=== PATIENT | male | born 1965 | race Caucasian/White ===

== ENCOUNTER 2019-11-02 10:04 | Outpatient (CLI) | payer BC, SELFPAY ==
[2019-11-02 10:20] LABS: Basophils Absolute Auto 0.03 K/mm3 (0.00-0.10); Basophils Percent Auto 0.3 % (0.0-1.0); Eosinophils Absolute Auto 0.11 K/mm3 (0.02-0.50); Eosinophils Percent Auto 1.1 % (1.0-6.0); Hematocrit 45.2 % (40.0-54.0); Hemoglobin 15.3 g/dL (14.0-18.0); Immature Granulocyte Absolute 0.05 K/mm3 (0.00-0.00); Immature Granulocyte Percent A 0.5 % (0.0-0.0); Lymphocytes Absolute Auto 1.02 K/mm3 (1.10-4.50); Lymphocytes Percent Auto 10.3 % (18.0-42.0); Mean Corpuscular HGB Conc 33.8 g/dL (32.0-36.0); Mean Corpuscular Volume 85.8 fL (78.0-102.0); Mean Platelet Volume 9.2 fl (8.7-11.0); Monocytes Absolute Auto 1.02 K/mm3 (0.10-0.90); Monocytes Percent Auto 10.3 % (2.0-11.0); Neutrophils Absolute Auto 7.7 K/mm3 (1.7-7.2); Neutrophils Percent Auto 77.5 % (50.0-70.0); Platelet Count Result 160 K/mm3 (150-420); Red Blood Count 5.27 M/mm3 (4.70-6.10); Red Cell Distribution Width 12.6 % (11.6-14.4); White Blood Count 9.9 K/mm3 (4.8-10.8)
[2019-11-02 10:38] LABS: Influenza Control Valid (Valid)
== END 2019-11-02 10:05 | disposition home or self-care (01) ==
PROVIDERS: PCP Internal Medicine; Visit Provider Internal Medicine
DX: R50.9 Fever, unspecified (principal); R05 Cough
CPT/HCPCS: 36415; 85025; 87804

== ENCOUNTER 2020-02-13 14:14 | Outpatient (CLI) | payer BC, SELFPAY ==
--- NOTE | ~2020-02-13 | XR_ITS ---
EXAMINATION: XR chest 2V 02/13/2020 15:03 INDICATION: Chronic cough PROCEDURE: 2 view chest COMPARISON: No prior studies for comparison. FINDINGS: The lungs are clear. The cardiomediastinal silhouette is within normal limits. There are no pleural effusions. There is no pneumothorax suspected. IMPRESSION: 1: NO ACUTE CARDIOPULMONARY DISEASE. Reviewed, dictated and finalized at location A.
== END 2020-02-13 14:15 | disposition home or self-care (01) ==
LOC: CHSLAB 14:17
PROVIDERS: PCP Internal Medicine; Visit Provider Internal Medicine
DX: R05 Cough (principal)
CPT/HCPCS: 71046

== ENCOUNTER 2020-10-28 14:22 | Outpatient (CLI) | payer BC, SELFPAY ==
--- NOTE | ~2020-10-28 | MR_ITS ---
EXAMINATION: MR knee RT wo con DATE: 10/28/2020 15:28 INDICATION: Medial and posterior right knee pain TECHNIQUE: Magnetic resonance imaging (MRI) of the right knee was performed without intravenous contr ast. Sequences included coronal PD-weighted FSE, coronal PD-weighted FS FSE, sagittal T2-weighted FS E, sagittal PD-weighted FS FSE and axial PD weighted fat saturated FSE. COMPARISON: None. FINDINGS: Medial compartment: The body and posterior horn of the medial meniscus are diminutive suggesting sequela of prior subtota l meniscectomy. There is deep chondral ulceration along the medial margin of the anterior to central weightbearing medial femoral condyle. Extensive deep chondral fissuring along the lateral two thirds of the anterior weightbearing medial femoral condyle where there is underlying regularity articular c ortex and underlying subarticular edema. The contour of the articular surface in this region suggests chronic collapse potentially related to chronic osteochondral lesion or impaction or insufficiency f racture. Partial-thickness cartilage loss along the central to anteromedial quadrant of the medial ti bial plateau with mild chondral surface irregularity. This approaches full-thickness with mild underl laurence subarticular edema along the medial rim. Small to moderate size marginal osteophytes are present . Lateral compartment: There is a tear which appears either longitudinal vertical or more likely complex involving the inner third of the posterior horn of the lateral meniscus. There is deep chondral fissure involving greate r than 50% the cartilage thickness but without degenerative subchondral changes along either side of the posterior horn of the meniscus at the central weightbearing lateral femoral condyle and posterior aspect of the lateral tibial plateau. Region of deep chondral ulceration along the medial aspect of the posterior weightbearing lateral femoral condyle with large central/subchondral osteophyte along t he posterior medial most aspect of the weightbearing lateral femoral condyle. Patellofemoral compartment: Partial-thickness chondral ulceration and deep fissuring without degenerative subchondral changes at the cephalad aspect of the medial trochlea. Deep chondral fissuring with underlying small central sub chondral osteophytes and minimal subarticular edema at the caudal aspect of the trochlear groove and inferomedial most aspect of the lateral trochlea. Deep chondral fissuring with additional small subch ondral osteophytes along the medial half of the medial patellar facet. Shallow chondral fissuring aaron ng the inferior aspect of the lateral facet. Ligaments and tendons: The posterior cruciate ligament is normal. The anterior cruciate ligament is torn with increased sign al at the proximal aspect of the ligament which appears lax and follows a shallower course than Blume nstaat line. The medial collateral ligament and fibular collateral ligament complex are normal. The e xtensor mechanism is normal. The visualized medial and lateral hamstring tendons as well as the iliot ibial band are normal. Fluid: Small right knee joint effusion. No loose osteochondral bodies. Small multilobulated Otoole's cyst. Ad ditional small ganglion cyst along the nonarticular anterior surface of the medial tibial plateau wit h mild cystic change in the underlying bone likely at the capsular insertion. Osseous/other: Bone alignment is normal. No fracture or pathologic marrow replacing process. IMPRESSION: 1. Anterior cruciate ligament tear. 2. Tear, likely complex involving the inner third of the posterior horn of the lateral meniscus. 3. Diminutive body and posterior horn of the medial meniscus likely sequela of chronic subtotal menis cectomy. 4. Moderate medial compartment and mild lateral and patellofemoral compartment osteoarthritis with re gions of high-grade heriberto
== END 2020-10-28 14:23 | disposition home or self-care (01) ==
PROVIDERS: PCP Internal Medicine; Visit Provider Orthopaedic Surgery
DX: S83.281A Other tear of lateral meniscus, current injury, right knee, initial encounter (principal); X58.XXXA Exposure to other specified factors, initial encounter; M17.11 Unilateral primary osteoarthritis, right knee; S83.511A Sprain of anterior cruciate ligament of right knee, initial encounter
CPT/HCPCS: 73721

== ENCOUNTER → 2020-12-03 00:58 | Outpatient (CLI) | payer BC, SELFPAY ==
[2020-12-03 20:47] LABS: SARS-CoV-2 RNA PCR Negative
== END ==
PROVIDERS: PCP Internal Medicine; Visit Provider Orthopaedic Surgery
DX: Z01.812 Encounter for preprocedural laboratory examination (principal); Z20.822 Contact with and (suspected) exposure to COVID-19
CPT/HCPCS: C9803; U0003; U0005

== ENCOUNTER 2020-12-06 00:55 | Day surgery (SDC) | payer BC, SELFPAY ==
[2020-11-27 10:50] VITALS: BMI 29.6
--- NOTE | 2020-12-03 08:25 | PM.IMHP ---
H&P: HPI History of Present Illness Date/Time: 12/03/20 08:25 Pt presents with Right knee/leg pain, that has been present since August 2020. His pain began at the anterior, medial knee and is now located at the posterior knee and radiates up to the lateral hip and, occasionally, down to the foot. He experiences stiffness after sitting for a prolonged period. He has difficulty ambulating down stairs. He has not had any treatments, for his symptoms. He has a history of bilateral knee meniscus repair 6 years ago. MRI completed 10/28/20. Involved knee: right Onset: gradual Location of pain: anterior Character: radiating and dull ache Timing of pain: constant Exacerbated by: sitting, kneeling, squatting, stairs and prolonged activity Relieved by: elevation and rest Associated symptoms: Reports swelling, instability and stiffness History of occupational/recreational activity with repetitive motion: No History of prior knee injury: Yes Prior treatment: surgery (meniscus repair) Chief Complaint: KNEE PAIN Review of Systems Review of Systems: All systems reviewed & are unremarkable except as noted in HPI and below Constitutional: Constitutional: Denies headache(s) and Denies weakness Eyes: Eyes: Denies blurry vision, Denies change in vision and Denies loss of vision ENT: Denies dizziness, Denies dry mouth, Denies headache(s) and Denies nasal congestion Cardiovascular: Cardiovascular: Denies chest pain, Denies syncope, Denies leg edema and Denies dyspnea on exertion Respiratory: Respiratory: Denies cough and Denies dyspnea on exertion Gastrointestinal: Gastrointestinal: Denies abdominal pain, Denies constipation and Denies diarrhea Genitourinary: Genitourinary: Denies urinary frequency Musculoskeletal: Musculoskeletal: Reports as per HPI and Denies numbness Integumentary/Breasts: Skin/Breast: Reports system reviewed and no additional complaints, except as docu Neurologic: Denies dizziness, Denies syncope, Denies headache(s), Denies loss of vision, Denies numbness and Denies weakness Psychiatric: Psychiatric: Reports no additional psychiatric complaints Endocrine: Endocrine: Reports no additional endocrine complaints Hematologic/Lymphatic: Hematologic/Lymphatic: Reports no additional hematologic/lymphatic complaints PMF Past Medical History Medical History Arthritis Right knee pain Surgical History Surgical History History of ear surgery Hx of arthroscopy of left knee Hx of arthroscopy of right knee Family History Family History Other Diabetes mellitus High cholesterol Social History Social History Smoking status: Never smoker Tobacco type: smokeless tobacco Smokeless tobacco user: chewing tobacco Additional smoking assessment comments: 1 CAN/DAY Alcohol intake: current Substance use: never Substance use type: does not use Gender identity (if verbalized by the patient): Male Spiritual care concerns: No Meds Home Medications and Allergies Home Medications Medication Instructions Recorded Confirmed Type chlorhexidine gluconate 4 % 1 applic TOPICAL ONCE #237 ml 11/06/20 11/27/20 Rx topical liquid albuterol 90 mcg INHALATION Q6H PRN 11/27/20 11/27/20 History cetirizine 10 mg PO DAILY 11/27/20 11/27/20 History montelukast 10 mg PO DAILY 11/27/20 11/27/20 History Allergies Allergy/AdvReac Type Severity Reaction Status Date / Time No Known Allergies Allergy Verified 11/27/20 10:49 Exam Narrative: Exam Narrative: Right lower extremity: normal to inspection, full ROM, normal capillary refill, cyanosis and knee Details: normal to inspection, tenderness Location: medial joint line and lateral joint line, swelling, abnormal ROM Details: pain with active ROM during
--- NOTE | 2020-12-05 14:43 | WPDANESEPPF ---
Anes - Initial Pre Proc Eval Procedure: Operation Date: 12/06/20 07:30 Proposed Procedures p Right Knee Arthroscopy, Proceed As Indicated - Easton Garcia MD Date/Time: 12/05/20 14:43 Surgeon: Easton Garcia MD Pre Op Diagnosis: Right Knee lateral Meniscus Tear Patient Data Age: 55 Gender: M Height: 1.83 m Weight: 99 kg Allergies Allergy/AdvReac Type Severity Reaction Status Date / Time No Known Allergies Allergy Verified 12/06/20 06:40 Home Medications Medication Instructions Recorded Confirmed Type chlorhexidine gluconate 4 % 1 applic TOPICAL ONCE #237 ml 11/06/20 11/27/20 Rx topical liquid albuterol 90 mcg INHALATION Q6H PRN 11/27/20 12/06/20 History cetirizine 10 mg PO DAILY 11/27/20 11/27/20 History montelukast 10 mg PO DAILY 11/27/20 12/06/20 History Patient hx anesthesia problems: none Family hx anesthesia problems: none PMFSH Past Medical History Medical History (Updated 12/05/20 @ 14:44 by Dewayne Urban MD) Arthritis Overweight (BMI 25.0-29.9) Right knee pain Tobacco abuse Surgical History Surgical History History of ear surgery Hx of arthroscopy of left knee Hx of arthroscopy of right knee Family History Family History Other Diabetes mellitus High cholesterol Social History Social History Smoking status: Never smoker Tobacco type: smokeless tobacco Smokeless tobacco user: chewing tobacco Additional smoking assessment comments: 1 CAN/DAY Alcohol intake: current Alcohol use details: 2/MONTH Substance use: never Substance use type: does not use Living arrangements: with family Gender identity (if verbalized by the patient): Male Spiritual care concerns: No Anes - Eval Final PreProcedure Day of Procedure 12/05/20 14:43 Patient weight: overweight Heart: regular rate and rhythm Lungs: clear to auscultation and normal air movement Airway: Mallampati scale class II Neurological: alert and oriented Last oral intake: >/= 8 hours ASA classification: II Emergent: no Anesthetic plan: proceed Anesthesia type and monitoring: general LMA Informed Consent: The patient's anesthetic plan and its attendant risks and benefits were discussed with the patient/family/POA. Questions were solicited and answers provided to the satisfaction of the patient/family/POA.
[2020-12-06] MEDS: ACETAMINOPHEN 500 MG TABLET 1000 MG PO (06:27)
[2020-12-06] MEDS: CELECOXIB 200 MG CAPSULE PO (06:33)
[2020-12-06] MEDS: LACTATED RINGERS 1,000 ML 30 ML IV CONT ×2 (06:33→09:10)
[2020-12-06 06:41] VITALS: BP 141/95; PULSE 79; TEMP 36.2; O2SAT 95
--- NOTE | 2020-12-06 07:52 | PM.IMHP ---
H&P: HPI History of Present Illness Date/Time: 12/06/20 07:52 [facility] Past Medical History Medical History (Updated 12/05/20 @ 14:44 by Dewayne Urban MD) Arthritis Overweight (BMI 25.0-29.9) Right knee pain Tobacco abuse Surgical History Surgical History History of ear surgery Hx of arthroscopy of left knee Hx of arthroscopy of right knee Family History Family History Other Diabetes mellitus High cholesterol Social History Social History Smoking status: Never smoker Tobacco type: smokeless tobacco Smokeless tobacco user: chewing tobacco Additional smoking assessment comments: 1 CAN/DAY Alcohol intake: current Alcohol use details: 2/MONTH Substance use: never Substance use type: does not use Living arrangements: with family Gender identity (if verbalized by the patient): Male Spiritual care concerns: No Meds Home Medications and Allergies Home Medications Medication Instructions Recorded Confirmed Type chlorhexidine gluconate 4 % 1 applic TOPICAL ONCE #237 ml 11/06/20 11/27/20 Rx topical liquid albuterol 90 mcg INHALATION Q6H PRN 11/27/20 12/06/20 History cetirizine 10 mg PO DAILY 11/27/20 11/27/20 History montelukast 10 mg PO DAILY 11/27/20 12/06/20 History Allergies Allergy/AdvReac Type Severity Reaction Status Date / Time No Known Allergies Allergy Verified 12/06/20 06:40 Vital Signs Vital Signs - 24 hr 12/06/20 06:41 Temperature 36.2 C L Pulse Rate 79 Blood Pressure 141/95 H Pulse Oximetry 95
--- NOTE | 2020-12-06 07:52 | WPDHPUPDATE1 ---
History and Physical Update Update Date/Time: 12/06/20 07:52 History and Physical has been reviewed, including an updated exam of the patient. There are NO changes in the patient's condition. Risks, benefits, and alternatives have been discussed and questions answered. Patient agrees to proceed with procedure.
[2020-12-06] MEDS: ceFAZolin 2 GM/D5W 50 ML 2 GM/50 ML BAG IVPB (07:59)
[2020-12-06] MEDS: BUPIVACAINE HCL 0.5% PF 30 ML VIAL INFILTRATE (08:26)
[2020-12-06 09:10] VITALS: BP 141/95; PULSE 86; RESP 15; TEMP 36.5; O2SAT 99
--- NOTE | 2020-12-06 09:20 | PM.PROC ---
Procedure Note - Detailed Date of procedure: 12/06/20 Pre-op diagnosis: Right Knee lateral Meniscus Tear Post-op diagnosis: other (lateral meniscus tear, chondromalacia, synovitis) Procedure performed: RIGHT KNEE SCOPE WITH PARTIAL LATERAL MENISCECTOMY AND MAJOR SYNOVECTOMY Description of procedure: PATIENT WAS TAKEN TO THE OR. RIGHT LEG WAS PREPPED AND DRAPED STERILE. TROCARS WERE PLACED IN THE USUAL FASHION. CAMERA WAS INTRODUCED. THERE WAS OSEVERE CHONDROMALACIA TO THE PATELLA FEMORAL JOINT. THERE WAS A LOT OF SYNOVITIS IN ALL COMPARTMENTS. THE MEDIAL COMPARTMENT SHOWED CHONDROMALACIA TO THE MED FEMORAL CONDYLE. A SHAVER WAS USED TO PREFORM A CHONDROPLASTY. THERE WAS A EVIDENCE OF A PREVIOUS MEDIAL MENISCECTOMY BUT NO CURRENT TEAR. THE ACL WAS PARTIALLY TORN BUT INTACT. THE LATERAL MENISCUS WAS TORN AT THE POSTERIOR HORN ROOT. THE TEAR WAS RESECTED. THE LATERAL COMPARTMENT HAD GRADE 2 CHONDROMALACIA AT THE LATERAL PLATEAU. THERE WAS A CHONDRAL DEFECT AT THE LATERAL FEMORAL CONDYLE. CHONDROPLASTY WAS PREFORMED. A SYNOVECTOMY WAS PREFORMED WELL. THE PATELLO FEMORAL JOINT UNDERWENT CHONDROPLASTY. THERE WAS GRADE 3 CHONDROMALACIA IN MOST OF THE TROCHLEA AND PART OF THE PATELLA. SYNOVECTOMY WAS PREFORMED IN THE SUPERIOR MEDIAL COMPARTMENT. THE WOUNDS WERE APPROXIMATED WITH 4.0 NYLON. STERILE DRESSING WAS APPLIED. PATIENT WAS EXTUBATED. Anesthesia: GLMA Surgeon: Easton Garcia MD Estimated blood loss (mL): 20 Complications: No immediate complications Condition: stable Disposition: PACU
[2020-12-06 09:25] VITALS: BP 138/98; PULSE 75; RESP 18; O2SAT 100
[2020-12-06 09:40] VITALS: BP 152/99; PULSE 74; RESP 15; O2SAT 97
[2020-12-06 10:01] VITALS: BP 150/99; PULSE 60
[2020-12-06 10:30] VITALS: BP 136/99; PULSE 63
== END 2020-12-06 10:53 | disposition home or self-care (01) ==
PROVIDERS: PCP Internal Medicine; Visit Provider Orthopaedic Surgery
PROC: (CPT 29870; principal; 2020-12-06 07:30)
DX: M23.221 Derangement of posterior horn of medial meniscus due to old tear or injury, right knee (principal); S83.511A Sprain of anterior cruciate ligament of right knee, initial encounter; M22.41 Chondromalacia patellae, right knee; M65.9 Synovitis and tenosynovitis, unspecified; M23.91 Unspecified internal derangement of right knee; E66.3 Overweight; Z68.28 Body mass index [BMI] 28.0-28.9, adult; F17.220 Nicotine dependence, chewing tobacco, uncomplicated; X58.XXXA Exposure to other specified factors, initial encounter; Y93.9 Activity, unspecified; Y92.9 Unspecified place or not applicable; Y99.9 Unspecified external cause status
CPT/HCPCS: 29881; 29876; A9270; J0690; J1100; J2250; J2405; J2704; J3010; J7120

== ENCOUNTER 2020-12-24 08:07 | Outpatient (RCR) | payer BC, SELFPAY ==
--- NOTE | 2020-12-24 08:39 | PTOPEVAL ---
Thank you for referring Denis Tavares to [facility].? The patient is scheduled to be seen for therapy? __2__x/week for 8 visits. Please review, sign, date and return this plan of care ESCOBAR. I agree with and certify that the following plan of care is medically necessary. Referring Physician Date Admitting Provider: Attending Provider: Easton Garcia MD Referring Provider: *PT Outpatient Evaluation Start: 12/24/20 07:57 Freq: Status: Active Protocol: Document 12/24/20 07:57 OSVALDO (Rec: 12/24/20 08:38 [email or web address] [email or web address]) Therapy Assessment Status Assessment Status Assessment Status Evaluation Outpatient Past Medical History Neurological History Hx Neurological Disorders No Significant History Cardiovascular History Hx Cardiac Disorders No Significant History Respiratory History Hx Respiratory Disorders No Significant History Gastrointestinal History Hx Gastrointestinal Disorders No Significant History Genitourinary History Hx Genitourinary Disorders No Significant History Musculoskeletal History Hx Back Pain Yes: L4 BULGING DISC Hx Crutches or Walker Use Yes: CRUTCHES Query Text:If Yes, Enter Crutches, Walker, or Both in the Comment Hx Fractures Yes: RT HAND Hx Orthopedic Surgery Yes: BILAT MENISCUS REPAIR Hematological History Hx Hematological Disorders No Significant History Endocrine History Hx Endocrine Disorders No Significant History HEENT History Hx Ear Surgery Yes: A CHILD Integumentary History Hx Skin Disorders No Significant History Reproductive History Hx Reproductive Disorders No Significant History Psychosocial History Hx Psychiatric Disorders No Significant History Pain History History of Any Previous or Ongoing No Significant History Instance of Pain Anesthesia History Hx Anesthesia Reactions No Significant History Evaluation Information Problem Diagnosis s/p right knee arthroscopy Onset 12/06/20 Subjective Information Pt. reports that he underwent Query Text:As Reported By Patient/ right knee scope on 12/06/20. Family He states that he is feeling better since surgery. 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 He states that he has not been attempting steps since surgery. He reports pain has been mild. He reports that he enjoys riding a bike. He
--- NOTE | 2021-02-24 14:55 | PCPTNOTE ---
Mr. Tavares attended a total of 7 treatment sessions from 12/24/20 to 01/15/21. He has failed to return to the clinic and has not contacted the clinic regarding his status. He will be discharged from our care. Refer to last daily note for pt. discharge status. Hany Garcia, MPT
== END 2021-01-15 15:29 | disposition home or self-care (01) ==
LOC: CHSPT 08:07
PROVIDERS: PCP Internal Medicine; Visit Provider Orthopaedic Surgery
DX: Z98.890 Other specified postprocedural states (principal)
CPT/HCPCS: 97014; 97110; 97161; 97530; G0283

== ENCOUNTER 2021-07-25 15:47 | Outpatient (CLI) | payer BC, SELFPAY ==
--- NOTE | ~2021-07-25 | XR_ITS ---
EXAMINATION: XR chest 2V EXAM DATE: 07/25/2021 16:12 INDICATION: dx COVID 2 wks ago. Pt sates to have cough. TECHNIQUE: Frontal and lateral projections of the chest obtained and reviewed. Comparison is made to prior examination from 02/13/2020. FINDINGS: There are scattered lung calcified granulomas. The lungs are otherwise clear. There are n o pleural effusions. The cardiomediastinal silhouette is within normal limits. There is no pneumoth orax suspected. The bones and soft tissues are unremarkable. IMPRESSION: No acute cardiopulmonary findings. Reviewed, dictated and finalized at location B. DATA DEVELOPER
[2021-07-25 16:05] LABS: Add Urine Microscopic? NO; Appearance Urine Clear (Clear); Basophils Absolute Auto 0.04 K/mm3 (0.00-0.10); Basophils Percent Auto 0.6 % (0.0-1.0); Bilirubin Urine Negative (Negative); Blood Urine Negative (Negative); Color Urine Light Yellow (Yellow); Eosinophils Absolute Auto 0.18 K/mm3 (0.02-0.50); Eosinophils Percent Auto 2.9 % (1.0-6.0); Glucose Urine UA Negative (Negative); Hematocrit 41.3 % (40.0-54.0); Hemoglobin 13.9 g/dL (14.0-18.0); Immature Granulocyte Absolute 0.03 K/mm3 (0.00-0.00); Immature Granulocyte Percent A 0.5 % (0.0-0.0); Ketones Urine Negative (Negative); Leukocyte Esterase Ur Negative (Negative); Lymphocytes Absolute Auto 1.46 K/mm3 (1.10-4.50); Lymphocytes Percent Auto 23.4 % (18.0-42.0); Mean Corpuscular HGB Conc 33.7 g/dL (32.0-36.0); Mean Platelet Volume 9.4 fl (8.7-11.0); Monocytes Absolute Auto 0.68 K/mm3 (0.10-0.90); Monocytes Percent Auto 10.9 % (2.0-11.0); Neutrophils Absolute Auto 3.9 K/mm3 (1.7-7.2); Neutrophils Percent Auto 61.7 % (50.0-70.0); Nitrate Urine Negative (Negative); Platelet Count Result 225 K/mm3 (150-420); Protein Urine Negative (Negative); Red Cell Distribution Width 12.2 % (11.6-14.4); Urobilinogen Urine 0.2 mg/dL (0.2-1.0); White Blood Count 6.3 K/mm3 (4.8-10.8)
[2021-07-25 16:23] LABS: Alanine Aminotransferase 77 U/L (16-63); Albumin Level 3.9 g/dL (3.4-5.0); Alkaline Phosphatase 79 U/L (46-116); Anion Gap 11 mmol/L (8-16); Aspartate Amino Transferase 34 U/L (15-37); Bilirubin,Total 0.8 mg/dL (0.00-1.00); Blood Urea Nitrogen 18 mg/dL (7-18); Calcium 8.3 mg/dL (8.5-10.1); Carbon Dioxide 25 mmol/L (21-32); Chloride 102 mmol/L (98-108); Estimated Glomerular Filt Rate > 60; Glucose 118 mg/dL (70-99); Osmolality Calculated 288 mOsm/kg (285-295); Potassium 3.6 mmol/L (3.5-5.1); Sodium 138 mmol/L (136-145)
[2021-07-25 16:24] LABS: CRP < 0.2 mg/dL (0.0-0.9)
[2021-07-28 10:48] LABS: Ferritin 421 ng/mL (26-388)
[2021-08-01 04:29] LABS: Hepatitis A Antibody IgM Nonreactive; Hepatitis B Core Antibody Nonreactive (Nonreactive); Hepatitis B Surface Antigen Nonreactive (Nonreactive); Hepatitis C Signal to Cutoff 0.01 ratio (<1.00); Hepatitis C Virus Antibody Nonreactive (Nonreactive)
== END 2021-07-25 15:48 | disposition home or self-care (01) ==
LOC: CHSLAB 15:51
PROVIDERS: PCP Internal Medicine; Visit Provider Internal Medicine
DX: R05.9 Cough, unspecified (principal); J06.9 Acute upper respiratory infection, unspecified; R94.5 Abnormal results of liver function studies
CPT/HCPCS: 36415; 71046; 80053; 80074; 81003; 82728; 85025; 86140

== ENCOUNTER → 2021-09-04 14:10 | Outpatient (CLI) | payer BC, SELFPAY ==
--- NOTE | ~2021-09-04 | CT_ITS ---
EXAMINATION: CT sinus wo con DATE: 09/04/2021 14:25 INDICATION: Chronic sinusitis. Cough. TECHNIQUE: Computed tomography (CT) of the paranasal sinuses was performed without intravenous contra st. The dose-length product was 298.59 mGy-cm. Automated exposure control and iterative reconstruction technique were employed. COMPARISON: CT dated 10/24/2013 FINDINGS: There is chronic mucosal thickening of all paranasal sinuses with near complete opacificati on of the frontal, ethmoid and sphenoid sinuses. Mastoids are pneumatized. There are surgical changes consistent with surgical resection of the ostiomeatal units. IMPRESSION: 1. Chronic pansinusitis. Reviewed, dictated and finalized at location B. LLARY SERVICES MANAGER IMPRESSION: 1. Chronic pansinusitis.
== END ==
PROVIDERS: PCP Internal Medicine; Visit Provider Internal Medicine
DX: J32.9 Chronic sinusitis, unspecified (principal)
CPT/HCPCS: 70486

== ENCOUNTER 2021-09-05 12:49 | Outpatient (CLI) | payer BC, SELFPAY | END 2021-09-05 12:50 | disposition home or self-care (01) | PROVIDERS: PCP Internal Medicine; Visit Provider Internal Medicine | DX: J32.9 Chronic sinusitis, unspecified (principal); R05.9 Cough, unspecified | CPT/HCPCS: 94060; 94726; 94729 ==

== ENCOUNTER 2021-11-04 00:43 | Day surgery (SDC) | payer BC, SELFPAY ==
[2021-10-27 11:34] VITALS: BMI 29.8
--- NOTE | 2021-10-27 11:42 | PC.NURSE ---
Report to the Outpatient Waiting Room, entrance under the green pavilion located off [facility], at time 0600 on date 11/04/21. OR Time: 0730. - You and your visitor will be asked a series of questions to screen for COVID 19 for your protection. - A mask is required within the hospital. One visitor will be allowed to accompany the patient into the hospital. Patients visitor will be instructed to remain with patient at all times or leave the building. We will allow the visitor to come back to the postoperative area when patient is ready. Preoperative COVID Testing Requirements: No COVID Test needed if: (proof is required; if not received patient will have Rapid Test prior to entry) - Patient has received COVID Vaccine at least 14 days prior to procedure date or - Patient has positive COVID test result within last 90 days of surgery date. COVID Test needed if above criteria is not met Patients may have clear liquids (water, carbonated beverages, clear teas, apple juice) until 3 hours prior to surgery with a maximum of 20 ounces. - No food from midnight until time of surgery Take the following medications with a SIP of water the morning of surgery: NONE Medications to discontinue per physician: N/A Date to take last dose: N/A Please no make-up, nail malawian, hairspray, perfume, deodorant, or body powder the day of surgery. No jewelry (including any body piercings) or valuables the day of surgery, leave them at home. Please take a shower or bath the night before, or the morning of, surgery with an antibacterial soap. Wear comfortable, loose fitting clothing. - Jewelry must be removed prior to entering the operating room. Rings and piercings that are not removed may be cut off. - The hospital will not accept responsibility for valuables. - Please leave all valuables, including medications, at home the day of surgery. If you are going home after surgery, a licensed lift driver must drive you home. - NO public transportation without another adult. - We recommend that an adult stay with you for 24 hours following discharge. - We also recommend that you do not drive, make important decision, drink alcoholic beverages, or take any drugs that were not prescribed by your health care provider for at least 24 hours after your discharge time. Follow any additional instructions given to you from your surgeon. Telephone instructions given to ERIC MENDOZA and asked if any additional questions and then verbalized understanding. Patient advised to call surgeon office or pre surgery nurse liaison [phone] if any additional questions.
--- NOTE | 2021-11-03 16:11 | PM.IMHP ---
H&P: HPI History of Present Illness Date/Time: 11/03/21 16:11 Chief Complaint: Chronic sinusitis septal deviation turbinate hypertrophy nasal obstruction nasal congestion nasal polyps right ear lesion Narrative: patient presents for planned surgical procedure no change in symptoms no change in history Review of Systems Constitutional: Constitutional: Denies fatigue, Denies fever(s) and Denies lethargy Eyes: Eyes: Denies blurry vision and Denies change in vision ENT: Reports as per HPI Cardiovascular: Cardiovascular: Denies chest pain Respiratory: Respiratory: Denies cough Endocrine: Endocrine: Denies fatigue Hematologic/Lymphatic: Hematologic/Lymphatic: Denies easy bleeding, Denies easy bruising and Denies lymphadenopathy Allergic/Immunologic: Allergic/Immunologic: Denies seasonal rhinorrhea [facility] Past Medical History Medical History Arthritis Overweight (BMI 25.0-29.9) Right knee pain Tobacco abuse Surgical History Surgical History History of ear surgery Hx of arthroscopy of left knee Hx of arthroscopy of right knee Family History Family History Other Asthma Father Hypertension Heart disease Cerebrovascular accident Other Diabetes mellitus High cholesterol Social History Social History Smoking status: Never smoker Tobacco type: smokeless tobacco Smokeless tobacco user: chewing tobacco Additional smoking assessment comments: 1 CAN/DAY Alcohol intake: current Alcohol use details: 2/MONTH Substance use: never Substance use type: does not use Living arrangements: with family Gender identity (if verbalized by the patient): Male Spiritual care concerns: No Meds Home Medications and Allergies Home Medications Medication Instructions Recorded Confirmed Type cetirizine 10 mg PO DAILY 11/27/20 10/27/21 History montelukast 10 mg PO DAILY 11/27/20 10/27/21 History budesonide 0.25 mg/2 mL suspension See Rx Instructions .ROUTE 10/23/21 10/27/21 Rx for nebulization .COMPLEX #60 ml prednisone 20 mg tablet 20 mg PO DAILY #4 tablet 10/30/21 Rx Allergies Allergy/AdvReac Type Severity Reaction Status Date / Time No Known Allergies Allergy Verified 10/27/21 11:33 Exam Const: General: cooperative, healthy appearing, comfortable, well developed and alert HENMT: Head: normal to inspection, normocephalic and atraumatic Ears: hearing grossly normal bilaterally, external ears normal, TM's abnormal bilaterally ( right granulation tissue) and EAC's normal General nose exam: Normal external nose present, Normal nares present, nasal polyps, mucous membranes and turbinates abnormal, abnormal septum and Other nasal findings present ( septal deviation turbinate hypertrophy polypoid tissue) Face and sinus: normal facial exam Mouth: Yes Normal oral and palatal mucosa present, Yes lip normal, Yes tongue normal, Yes oropharynx normal and Yes moist mucous membranes Teeth and gingiva: dentition normal and gingiva normal Throat: posterior oropharynx normal, tonsils normal and uvula midline Eyes: General: appearance normal, both eyes and all related structures Periorbital: periorbital findings normal Eyelids: eyelids normal Conjunctivae: conjunctivae normal Sclera: sclerae normal Neck: Neck: normal visual inspection, full ROM and no lymphadenopathy Thyroid: thyroid normal Lymphatic: no lymphadenopathy noted Resp: Effort & Inspection: normal respiratory effort and able to speak in complete sentences Cardio: Jugular venous distension: no JVD Neuro: Cranial nerves: Yes CN's II-XII intact bilaterally Assessment and Plan Assessment and plan (1) Lesion of right ear: Code(s): H93.91 - Unspecified disorder of right ear Status: Acute
[2021-11-04] VITALS (9 sets, daily range): BP systolic 119–138; BP diastolic 84–91; PULSE 71–90; RESP 12–16; TEMP 36–36.1; O2SAT 95–100
[2021-11-04] MEDS: ACETAMINOPHEN 500 MG TABLET 1000 MG PO (06:53)
[2021-11-04] MEDS: LACTATED RINGERS 1,000 ML 30 ML IV CONT ×2 (07:10→11:25)
--- NOTE | 2021-11-04 07:16 | WPDHPUPDATE1 ---
History and Physical Update Update Date/Time: 11/04/21 07:16 History and Physical has been reviewed, including an updated exam of the patient. There are NO changes in the patient's condition. Risks, benefits, and alternatives have been discussed and questions answered. Patient agrees to proceed with procedure.
--- NOTE | 2021-11-04 07:21 | P.PNAN_ITS ---
Anes - Initial Pre Proc Eval Procedure: Operation Date: 11/04/21 07:30 Proposed Procedures p Image Guided Bilateral Maxillary Antrostomy, Total Ethmoidectomies, Frontal Sinusotomies, Bilateral Sphenoidotomies, Bilateral Inferior Turbinectomy with Outfracture - John Clifton MD s Endoscopic Septoplasty - John Clifton MD Date/Time: 11/04/21 07:21 Surgeon: John Clifton MD Pre Op Diagnosis: Chronic Sinusitis Patient Data Age: 56 Gender: M Height: 1.83 m Weight: 96.9 kg Last Vital Signs Temp 36.1 C L 11/04/21 06:20 Pulse 78 11/04/21 06:20 Resp 16 11/04/21 06:20 BP 127/89 11/04/21 06:20 Pulse Ox 97 11/04/21 06:20 Allergies Allergy/AdvReac Type Severity Reaction Status Date / Time No Known Allergies Allergy Verified 11/04/21 06:54 Home Medications Medication Instructions Recorded Confirmed Type cetirizine 10 mg PO DAILY 11/27/20 11/04/21 History montelukast 10 mg PO DAILY 11/27/20 11/04/21 History budesonide 0.25 mg/2 mL suspension See Rx Instructions .ROUTE 10/23/21 11/04/21 Rx for nebulization .COMPLEX #60 ml prednisone 20 mg tablet 20 mg PO DAILY #4 tablet 10/30/21 11/04/21 Rx Patient hx anesthesia problems: none Family hx anesthesia problems: none Results Review: All pre-operative results and documents have been reviewed as part of the pre-operative evaluation. [facility] Past Medical History Medical History Arthritis Overweight (BMI 25.0-29.9) Right knee pain Tobacco abuse Surgical History Surgical History History of ear surgery Hx of arthroscopy of left knee Hx of arthroscopy of right knee Family History Family History Other Asthma Father Hypertension Heart disease Cerebrovascular accident Other Diabetes mellitus High cholesterol Social History Social History Smoking status: Never smoker Tobacco type: smokeless tobacco Smokeless tobacco user: chewing tobacco Additional smoking assessment comments: 1 CAN/DAY Alcohol intake: current Alcohol use details: 2/MONTH Substance use: never Substance use type: does not use Living arrangements: with family Gender identity (if verbalized by the patient): Male Spiritual care concerns: No Anes - Eval Final PreProcedure Day of Procedure 11/04/21 07:21 Patient weight: overweight Heart: regular rate and rhythm Lungs: clear to auscultation Airway: Mallampati scale class II Neurological: alert and oriented Last oral intake: >/= 8 hours ASA classification: II Emergent: no Anesthetic plan: proceed Anesthesia type and monitoring: general ETT and standard monitoring Results Review: All pre-operative results and documents have been reviewed as part of the pre-operative evaluation. Informed Consent: The patient's anesthetic plan and its attendant risks and benefits were discussed with the patient/family/POA. Questions were solicited and answers provided to the satisfaction of the patient/family/POA.
[2021-11-04] MEDS: ceFAZolin 2 GM/D5W 50 ML 2 GM/50 ML BAG IVPB (07:29)
[2021-11-04] MEDS: OXYMETAZOLINE HCL 0.05% NAS 15 ML BTL (*BKC) 1 SPRAY NASAL ×2 (07:51→09:20)
--- NOTE | 2021-11-04 10:26 | P.OP_ITS ---
Procedure Note - Detailed Date of Procedure 11/04/21 Pre-op Diagnosis Chronic Sinusitis, nasal polyps, nasal obstruction, turbinate hypertrophy, right tympanic membrane lesion Post-op Diagnosis Same Procedure Performed Submucosal reduction inferior turbinates with outfracture, bilateral image guided maxillary antrostomies bilateral image guided sphenoidotomies with tissue removal bilateral image guided total ethmoidectomies bilateral image guided frontal side me frontal sinusotomies, bilateral image guided middle turbinectomies bilateral image guided the placement of propel stents, everything done endoscopically. Right-sided jordan microscopy, image guided endoscopic polypectomy. Surgeon John Clifton MD Anesthesia General Indications See above Findings Septum only deviated caudally splayed only partially obstructing the frontal outflows adequate room and middle turbinates resected, polypoid tissue throughout the entire nasal passage and all the affected tissue, Szatkowski polypoid tissue removed from the sphenoids and frontals. Right eardrum appears better granulation tissue likely from irritation/infection abnormal TM likely non sinister related to previous repair Description of Procedure Patient identified consent verified. Patient brought operating room. Time-out performed. General anesthesia induced. Patient prepped and draped. Second time-out performed. Jordan microscope brought into field. Right EAC examined TM had a small area of previous granulation tissue appears all resolved non sinister. No biopsy taken. Likely from previous repair. Image guidance initiated. Scan reviewed. Afrin-soaked pledgets placed in the nasal passages allowed to sit for 5 minutes then removed. All the surgery other than the frontals performed with 0 degree endoscope. Septum deviated to the left caudally nonobstructive a frontals. Polypoid tissue debrided with micro debrider maxillary antrostomies slightly widened ensured to connect with natural outflow. Some polypoid edema ethmoidectomies performed with Kerrison as well as image guidance and a very careful fashion to ensure no violation of anterior ethmoidal artery and or skull base and/or orbit. Sphenoids located with image guidance cannulated with straight edge of [place] widened with 1 Kerrison than 3 Kerrison to skull base as well as dependent area inferiorly. Turbinates reduced 2 mm turbinate blade in the submucosal fashion bilaterally outfractured with [place]. Afrin-soaked pledgets placed allowed to sit for 5 minutes then removed. 70 degree endoscope utilized frontal outflow tract on the left easily cannulated with suction widened with Hosemann given the amount of polypoid edema debrided with 70 degree debrider excuse me 60 degree rad 60 debrider. The decision was made to place a propel stent. Small amount of NasoPore packing placed inferior to this. The exact same procedure was performed on the right frontal outflow tract with a propel stent NasoPore however this was much more difficult to cannulate and not as wide. Total blood loss 200 cc. Bilateral nasal passages were copiously irrigated with sterile normal saline which was warm which assisted in having excellent hemostasis at the end of the procedure. Care the patient turned Anesthesiology. I performed all dictated portions of the procedure. No complications. Implants Propel bilaterally as well as NasoPore bilaterally Estimated Blood Loss 200 Drains No Packing Yes Pathology None sent Complications No immediate complications Condition Stable Disposition PACU
== END 2021-11-04 12:35 | disposition home or self-care (01) ==
PROVIDERS: PCP Internal Medicine; Visit Provider Otolaryngology
PROC: (CPT 30999; principal; 2021-11-04 07:30)
PROC: (CPT 30999; 2021-11-04 07:30)
DX: J32.9 Chronic sinusitis, unspecified (principal); J33.9 Nasal polyp, unspecified; J34.3 Hypertrophy of nasal turbinates; J34.89 Other specified disorders of nose and nasal sinuses; J33.8 Other polyp of sinus; F17.220 Nicotine dependence, chewing tobacco, uncomplicated; J34.2 Deviated nasal septum; H60.91 Unspecified otitis externa, right ear; H93.91 Unspecified disorder of right ear
CPT/HCPCS: 30999; 31256; 31259; 31253; 30140; 61782; A9270; C2625; J0330; J0690; J1100; J2250; J2270; J2405; J2704; J7120

== ENCOUNTER 2024-09-22 08:46 | Outpatient (CLI) | payer OTHER, SELFPAY ==
--- OUTSIDE RECORDS SUMMARY | 2024-09-22 08:54 | XMS_ITS | Clinical Summary ---
Author Organization [facility] Address [address] [place] [id number] Care Team Providers Care Strategic Communications Specialist Name Role Phone Unavailable Primary Care Provider Unavailabl e Social History Tobacco Use Types Packs/Day Years Used Date Smoking Tobacco: Never Assessed Sex and Gender Information Value Date Recorded Sex Assigned at Not on file Legal Sex Male 9:41 PM [employer] Gender Identity Not on file Sexual Orientation Not on file Plan of Treatment Health Maintenance Due Date Last Done Comments Colorectal Cancer Screening Colonoscopy (10 Years) 1964 Annual Physical 1967 Hepatitis C 1982 DTaP, Tdap and Td Vaccines ( 1 - Tdap) 1983 Zoster Vaccines (1 of 2) 2014 COVID-19 Vaccine ( - 2023-2 5 season) 2024 Influenza Adult (#1) 2024 RSV Immunization or 60+ Years (1 - 1-dose 75+ series) 2039 Meningococcal B Vaccine Aged Out No l onger eligible based on patient's age to complete this topic Meningococcal Vaccine Aged Out No hiram nancy eligible based on patient's age to complete this topic Pneumococcal Vaccine: Pediat rics (0 to 5 Years) and At-Risk Patients (6 to 64 Years) Aged Out No longer eligible b ased on patient's age to complete this topic RSV Immunizations Under 20 Months Aged Out No longer eligible based on patient's age to complete this topic
--- OUTSIDE RECORDS SUMMARY | 2024-09-22 08:54 | XMS_ITS | Data Portability ---
Author Organization [place] - [facility], Lilibeth Arnett Address [address] [place] [address] Assessment No assessment recorded. Plan of Treatment Reminders Order Date Submit Date Provider Last Modified By Organization Details Last Modified Time Details Appointments None recorded. Lab None recorded. Referral physical therapist referral - left low back pain - will call to schedule if not feeling better in a week 2023 [facility], [address], [place], [address], 13:55:30 Procedures None recorded. Surgeries None recorded. Imaging None recorded. Medication Orders ketorolac 30 mg/mL (1 mL) injection solution 2023 024 [email or web address] Not available 17:25:29 ibuprofen 600 mg tablet 2023 [email or web address] [facility], [address] [place] [address], [id number], 17:25:29 cyclobenzap rine 10 mg tablet 2023 [email or web address] [facility], [address] [place] [address], [id number], 17:25:29 Patient TargetsNo targets recorded. Patient Instructions Encounter Date Encounter Id Patient Instructions Last Modified By Organization Details Last Modified Time 06/01/2024 [id number] back pain: care instructions [email or web address] Not available 06/01/2024 17:25:29 sciatica: care instructions [email or web address] Not available 06/01/2024 17:25:29 back care and preventing injuries: care instructions Not available 06/01/2024 17:25:29 low back pain: exercises Not available 06/01/2024 17:25:29 Reason for Referral Physical Therapist Referral for Backache left low back pain - will call to schedule if not feeling better in a week Referring Physician: Latisha Barker, Family Medicine, Encounter Date: 06/01/2024 Procedures Surgical History Date Name Laterality Status Provider Name and Address Organization Details Recorded Time Eardrum revision completed Bubba Serrano [place] - [facility] 06/01/2024 16:38:01 [facility]nee [facility] [place] [facility] 16:38:13 Sinus Surgery completed Bubba Serrano [place] [facility] 06/01/2024 16:38:22 Imaging Results None recorded. Procedure Notes None recorded. Medical Equipment None Reported. Allergies No known drug allergies Medications Name Sig Start Date Stop Date Status Note LastModified by Organization Details LastModified Time cyclobenzap rine 10 mg tablet Take 1 tablet 3 times a day by oral route. 2023 active Not Available Not Available Not Avai lable cetirizine 10 mg tablet TAKE 1 TABLET BY MOUTH ONCE DAILY active Not Available Not Available No t Available ofloxacin 0.3 % eye drops INSTILL 2 DROPS TO THE RIGHT 3 TIMES PER DAY FOR 7 DAYS 06/01 completed Not Available Not Available Not Available ketorolac 30 mg/mL (1 mL) injection solution Inject 1 mL by intramusc ular route. 2023 active Not Available Not Available Not Avai lable amoxicillin 875 mg tablet TAKE 1 TABLET BY MOUTH TWICE DAILY FOR 5 DAYS 06/01 completed Not Available Not Available Not Available doxycycline monohydrate 100 mg capsule TAKE 1 CAPSULE BY MOUTH TWICE A DAY 06/01 completed Not Available Not Available Not Available montelukast 10 mg tablet TAKE 1 TABLET BY MOUTH ONCE DAILY active Not Available Not Available No t Available ibuprofen 600 mg tablet Take 1 tablet 3 times a day by oral route as needed. 2023 active Not Available Not Available Not Avai lable Vitals Date Recorded Body height Body mass index (BMI) Body weight Respiratory rate Oxygen saturation Oxygen saturation in Arterial blood by Pulse oximetry Heart rate Systolic blood pressure Diastolic blood pressure Provider Name and Address Organization Details Last Updated DateTime 4 182.88 cm 29.2 kg/m2 73105.3 6 g 16 /min 96 % 96 % 89 /min 131 mm[Hg] 85 mm[Hg] Bubba Serrano [place] - [facility] 16:39:37 Social History None recorded. Functional Status None recorded. Mental Status None recorded. Family History Relationship Description Onset Age of this Age Resolved Age Notes LastModified by Organization Details LastModified Time Father Heart disease [email or web address] Not available 2023 16:37:44 Medical History No medical history recorded. Past Encounters Encounter ID Performer Location Encounter Start Date Encounter Closed Date Diagnosis/Indication Diagnosis SNOMED-CT Code Diagnosis ICD10 Code Diagnosis Note [id number] ROBIN Clemens [address] [place] [address] 06/01/2024 16:28:25 06/01/2024 17:28:34 Backache 704143841 M54.9 NSAIDS: ibuprofen 600mgTID (take with food) for 3-5 days and then as needed.Mus nadege relaxers - discussed R/B/SE.Lig ht activity. Moist heat.Refer ral to physical therapy - he can call and make appt if he wants to pursue next week.Discu ssed red flag signs and when to seek higher level of care. Health Concerns Section Related Observation LastModified by Organization Detai ls LastModified Time None Recorded Concern Status LastModified by Organization Details LastModified Time None Recorded Advance Directives Directive None Recorded Payers Encounter Date Sequence Insurance Name Policy Number Policy Prieto Covered Member ID Prieto Member ID Guarantor Name 06/01/2024 1 R - [facility] - [facility] [id number] Denis Tavares [id number] Denis Tavares Notes Date Note Type Note Provider Name and Address Organization Details Recorded Time 06/01/2024 text/html PAP is Dr Lou willingham in [place], [place]. 3 Days of left lower back pain. Hx of a bulged disc- had 2 injections at a pain clinic 8-10 years ago. Pain from left low back to lateral hip area with some numbness to left buttock. Better with moving around. Standing too long increases pain. Pain interrupts his sleep - difficult to find comfortable position. Using 4 ibuprofen in the morning. 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 Continues to go to work. Latisha Barker NP [address], [place], [address], [place] - [facility] 06/01/2024 17:27:54
[2024-09-22 09:06] LABS: Hematocrit 43.8 % (40.0-54.0); Hemoglobin 14.6 g/dL (14.0-18.0); Mean Corpuscular HGB Conc 33.3 g/dL (32-36); Mean Corpuscular Hemoglobin 28.7 pg (27.0-31.0); Mean Corpuscular Volume 86.1 fL (78.0-102.0); Mean Platelet Volume 8.7 fl (8.7-11.0); Platelet Count Result 185 K/mm3 (150-420); Red Blood Count 5.09 M/mm3 (4.70-6.10); Red Cell Distribution Width 12.2 % (11.6-14.4); White Blood Count 5.6 K/mm3 (4.8-10.8)
[2024-09-22 09:21] LABS: Add Urine Microscopic? NO; Appearance Urine Clear (Clear); Bilirubin Urine Negative (Negative); Blood Urine Negative (Negative); Color Urine Yellow (Yellow); Glucose Urine UA Negative (Negative); Ketones Urine Negative (Negative); Leukocyte Esterase Ur Negative (Negative); Nitrate Urine Negative (Negative); Protein Urine Negative (Negative); Specific Grav Ur 1.025 (1.010-1.020); Urobilinogen Urine 0.2 mg/dL (0.2-1.0)
[2024-09-22 10:30] LABS: Erythrocyte Sedimentation Rate 4 mm/hr (0-20)
[2024-09-22 10:56] LABS: Alanine Aminotransferase 52 U/L (16-63); Albumin Level 4.2 g/dL (3.4-5.0); Alkaline Phosphatase 75 U/L (46-116); Anion Gap 6 mmol/L (4-12); Aspartate Amino Transferase 24 U/L (15-37); Bilirubin,Total 1.7 mg/dL (0.00-1.00); Blood Urea Nitrogen 17 mg/dL (7-18); Calcium 8.7 mg/dL (8.5-10.1); Carbon Dioxide 29 mmol/L (21-32); Chloride 105 mmol/L (98-108); Cholesterol 246 mg/dL (0-200); Estimated Glomerular Filt Rate > 60; Glucose 97 mg/dL (70-99); HDL Direct 43 mg/dL (40-60); LDL Cholesterol Calculated 181 mg/dL (<130); Osmolality Calculated 291 mOsm/kg (285-295); Potassium 4.3 mmol/L (3.5-5.1); Sodium 140 mmol/L (136-145); Total Protein 6.9 g/dL (6.4-8.2); Triglycerides 109 mg/dL (0-150); Uric Acid 4.9 mg/dL (3.5-7.2)
[2024-09-22 14:42] LABS: CRP < 0.5 mg/dL (0.0-0.9)
== END 2024-09-22 08:47 | disposition home or self-care (01) ==
LOC: CHSLAB 08:52
PROVIDERS: PCP Internal Medicine; Visit Provider Internal Medicine
DX: Z00.00 Encounter for general adult medical examination without abnormal findings (principal); J45.909 Unspecified asthma, uncomplicated; G62.9 Polyneuropathy, unspecified
CPT/HCPCS: 36415; 80053; 80061; 81003; 84153; 84443; 84550; 85027; 85652; 86140; G0103